=== PATIENT | female | born 1945 | race Caucasian/White ===

== ENCOUNTER 2024-10-20 06:41 | Inpatient (IN) | payer MEDICARE ==
[2024-10-16 14:53] LABS: BILIRUBIN,URINE NEGATIVE (Neg); CLARITY,URINE CLEAR (Clear); COLOR,URINE STRAW (Yellow); GLUCOSE, URINE NEGATIVE (Neg); KETONES,URINE NEGATIVE (Neg); LEUKOCYTE ESTERASE ,URINE TRACE (Neg); NITRITES, URINE NEGATIVE (Neg); OCCULT BLOOD,URINE TRACE-INTACT (Neg); PROTEIN,URINE NEGATIVE (Neg); UROBILINOGEN,URINE 0.2 E.U/dL (0.2-1.0)
[2024-10-16 14:59] LABS: BASOPHILS % (AUTO) 0.6 % (0-1); EOSINOPHILS # (AUTO) 0.2 X10'3 (0-0.9); EOSINOPHILS % (AUTO) 2.3 % (0-6); LYMPHOCYTES # (AUTO) 1.4 X10'3 (1.1-4.8); LYMPHOCYTES % (AUTO) 19.8 % (21-51); MEAN CORPUSCULAR HEMOGLOBIN 28.7 PG (27.0-31.0); MEAN CORPUSCULAR HGB CONC 32.8 g/dL (33.0-36.5); MEAN CORPUSCULAR VOLUME 87.3 FL (78-98); MEAN PLATELET VOLUME 8.4 FL (7.4-10.4); MONOCYTES # (AUTO) 0.5 X10'3 (0-0.9); MONOCYTES % (AUTO) 6.4 % (2-12); NEUTROPHILS # (AUTO) 5.1 X10'3 (1.8-7.7); NEUTROPHILS % (AUTO) 70.9 % (42-75); PRE OP HEMATOCRIT 41.8 % (35.0-45.0); PRE OP HEMOGLOBIN 13.7 g/dL (12.0-16.0); PRE OP PLATELET COUNT 240 X10'3 (140-440); PRE OP WHITE BLOOD COUNT 7.1 10'3 (4.8-10.8); RED BLOOD COUNT 4.79 X10'6 (4.20-5.60); RED CELL DISTRIBUTION WIDTH 14.7 % (11.5-14.5)
[2024-10-16 14:59] LABS: UA COLLECTION TYPE NON-SPECIFIED
[2024-10-16 15:00] LABS: RBC,URINE 0-2 /HPF (0-2)
[2024-10-16 15:01] LABS: BACTERIA,URINE NONE SEEN /HPF (Neg); MUCUS STRANDS NONE SEEN /LPF (Neg); SQUAMOUS EPITHELIAL CELL,UR FEW /LPF (FEW); TRANSITIONAL EPI CELLS,URINE FEW /HPF
[2024-10-16 15:18] LABS: PRE OP PROTIME 10.4 SECONDS (9.0-12.0)
[2024-10-16 16:08] LABS: ALBUMIN 3.8 G/DL (3.4-5.0); ALBUMIN/GLOBULIN RATIO 1.1 (1.1-1.5); ALKALINE PHOSPHATASE 89 IU/L (46-116); BLOOD UREA NITROGEN 22 MG/DL (7-18); BUN/CREATININE RATIO 18.5 (10.0-20.0); CALCIUM 9.3 MG/DL (8.5-10.1); CHLORIDE 102 MMOL/L (99-107); CREATININE 1.19 MG/DL (0.40-0.90); PRE OP ALT 23 U/L (30-65); PRE OP ANION GAP 9 (8-16); PRE OP AST 18 U/L (10-37); PRE OP BILIRUB, TOTAL 0.9 MG/DL (0.0-1.0); PRE OP GLUCOSE 84 MG/DL (70-104); PRE OP POTASSIUM 3.8 MMOL/L (3.4-5.1); PRE OP SODIUM 141 MMOL/L (135-145); THYROID STIMULATING HORMONE 2.46 ulU/ml (0.34-4.50); TOTAL CARBON DIOXIDE 30.3 MMOL/L (24-32); TOTAL PROTEIN 7.2 G/DL (6.4-8.2); eGFR 44 ML/MIN
[~2024-10-20] VITALS: Ht 163.8 cm; Wt 90.1 kg
[2024-10-20] VITALS (26 sets, daily range): BP systolic 98–156; BP diastolic 53–77; PULSE 50–84; RESP 12–49; TEMP 97.4–98.1; O2SAT 92–99
[~2024-10-20 06:41] MED LIST: APIX5TAB3 PO; LEVO100T PO; LOSA1TAB41 PO; PRAV80TA3 PO; ondansetron/PF 4mg/2ml inj IV PRN; protamine sulfate 10mg/ml inj. ONE
[2024-10-20] MEDS: VANCOMYCIN/H2O 1.5g/300mL PB 300 ML IV ONE (07:31)
[2024-10-20] MEDS: ringers solution, lacted 1,000 ML IV SCH (07:31)
[2024-10-20] MEDS: ceFAZolin 2gm in dextrose, iso 50 ML IV ONE (07:32)
[2024-10-20] MEDS: famotidine 20mg tablet PO ONE (07:32)
[2024-10-20] MEDS ORDERED: fentaNYL/PF 50MCG/1 ML 2ML syringe ONE (08:03)
[2024-10-20] MEDS ORDERED: midazolam 1 mg/ML 2ml injection ONE (08:03)
[2024-10-20] MEDS ORDERED: iohexol 350MG/ML 100ml bottle IV ONE (08:10)
[2024-10-20] MEDS ORDERED: desflurane 240ml liquid inh. IH ONE (08:21)
[2024-10-20] MEDS ORDERED: rocuronium 10mg/ml inj IV ONE (08:38)
[2024-10-20] MEDS ORDERED: propofol inj 20 ML IV ONE (08:39)
[2024-10-20] MEDS ORDERED: ondansetron/PF 4mg/2ml inj ONE (08:41)
[2024-10-20] MEDS ORDERED: heparin 1,000unit/ml 10ml vial 10 ML ONE (08:41)
[2024-10-20] MEDS ORDERED: potassium Cl 20 mEq SR tablet PO PRN (09:05)
[2024-10-20] MEDS ORDERED: hydrALAZINE 20mg/ml inj. IV PRN (09:05)
[2024-10-20] MEDS ORDERED: potassium Cl 20mEq/100mL bag 100 ML IV PRN (09:05)
[2024-10-20] MEDS ORDERED: potassium CL 10mEq/100ml bag 100 ML IV PRN (09:05)
[2024-10-20] MEDS ORDERED: acetaminophen 325mg tablet PO PRN (09:05)
[2024-10-20] MEDS ORDERED: diphenhydrAMINE 25mg capsule PO PRN (09:05)
[2024-10-20] MEDS ORDERED: labetalol 20mg/4ml (5mg/ml) syringe IV PRN (09:05)
[2024-10-20] MEDS ORDERED: ondansetron/PF 4mg/2ml inj IV PRN (09:05)
[2024-10-20] MEDS ORDERED: magnesium sulf-water 4G/100mL 100 ML IV PRN (09:05)
[2024-10-20] MEDS ORDERED: proCHLORperazine 10 MG/2 ml inj IV PRN (09:05)
[2024-10-20] MEDS ORDERED: pantoprazole 40mg Tablet.DR PO PRN (09:05)
[2024-10-20] MEDS ORDERED: potassium Cl 40MEQ/270ML bag 250 ML IV PRN (09:05)
[2024-10-20] MEDS ORDERED: ALPRAZolam 0.25mg tablet PO PRN (09:05)
[2024-10-20] MEDS ORDERED: potassium Cl 40MEQ/1/2NS 520ml 520 ML IV PRN (09:05)
[2024-10-20] MEDS ORDERED: magnesium sulf-water 2g/50mL 50 ML IV PRN (09:05)
[2024-10-20] MEDS ORDERED: HYDROcodone/acetaminophen 5mg/325mg tablet PO PRN (09:05)
[2024-10-20] MEDS ORDERED: docusate sod 100mg capsule PO PRN (09:05)
[2024-10-20] MEDS: normal saline 1000ml 1,000 ML IV SCH (15:54)
[2024-10-20] MEDS: sod chloride 0.9% 10ml flush syringe IV SCH (15:54)
[2024-10-20] MEDS: ceFAZolin 1GM/D5W- ADD-VANTAGE 50 ML IV SCH (15:54)
[2024-10-20] MEDS: vancomycin inj 1,000 MG in normal saline 250ml IV soln 250 ML IV SCH (19:50)
[2024-10-20] MEDS: atorvastatin 20mg tablet PO SCH (21:13)
[2024-10-21 02:00] VITALS: BP 100/46; PULSE 50; RESP 18; TEMP 98; O2SAT 95
[2024-10-21 06:44] LABS: BASOPHILS % (AUTO) 0.5 % (0-1); EOSINOPHILS % (AUTO) 0.3 % (0-6); HEMATOCRIT 35.8 % (35.0-45.0); HEMOGLOBIN 12.2 g/dl (12.0-16.0); LYMPHOCYTES # (AUTO) 1.5 X10'3 (1.1-4.8); LYMPHOCYTES % (AUTO) 15.5 % (21-51); MEAN CORPUSCULAR HEMOGLOBIN 29.4 PG (27.0-31.0); MEAN CORPUSCULAR HGB CONC 33.9 g/dL (33.0-36.5); MEAN CORPUSCULAR VOLUME 86.8 FL (78-98); MEAN PLATELET VOLUME 8.8 FL (7.4-10.4); MONOCYTES # (AUTO) 0.7 X10'3 (0-0.9); MONOCYTES % (AUTO) 7.4 % (2-12); NEUTROPHILS # (AUTO) 7.6 X10'3 (1.8-7.7); NEUTROPHILS % (AUTO) 76.3 % (42-75); PLATELET COUNT 200 X10'3 (140-440); RED BLOOD COUNT 4.13 X10'6 (4.20-5.60); RED CELL DISTRIBUTION WIDTH 14.6 % (11.5-14.5)
[2024-10-21 06:59] LABS: INR 1.1 INR; PROTHROMBIN TIME 10.9 SECONDS (9.0-12.0)
[2024-10-21] MEDS: levoTHYROXINE 100mcg tablet PO SCH (07:13)
[2024-10-21 07:29] LABS: ALANINE AMINOTRANSFERASE 17 U/L (12-78); ALKALINE PHOSPHATASE 71 IU/L (46-116); ANION GAP 9 (8-16); ASPARTATE AMINO TRANSFERASE 18 U/L (10-37); BILIRUBIN,TOTAL 0.5 MG/DL (0.1-1.0); BLOOD UREA NITROGEN 25 MG/DL (7-18); BUN/CREATININE RATIO 18.7 (10.0-20.0); CALCIUM 8.8 MG/DL (8.5-10.1); CHLORIDE 107 MMOL/L (99-107); CREATININE 1.34 MG/DL (0.40-0.90); GLUCOSE 103 MG/DL (70-104); MAGNESIUM 1.9 MG/DL (1.5-2.4); PRO BRAIN NATRIURETIC PEPTIDE 379 PG/ML (0-450); SODIUM 141 MMOL/L (135-145); TOTAL CARBON DIOXIDE 25.2 MMOL/L (24-32); TOTAL PROTEIN 6.1 G/DL (6.4-8.2); eCRCL 31 ML/MIN; eGFR 38 ML/MIN
[2024-10-21 07:41] VITALS: BP 101/56; PULSE 77; RESP 18; TEMP 97.6; O2SAT 95
[2024-10-21 08:40] VITALS: BP_SYST 101; PULSE 77
[2024-10-21] MEDS: HYDROchlorothiazide 12.5mg capsule PO SCH (08:40)
[2024-10-21] MEDS: losartan 50mg tablet PO SCH (08:40)
[2024-10-21] MEDS: apixaban 5mg tablet PO SCH (08:40)
[2024-10-21 09:44] VITALS: RESP 20; O2SAT 98
== END 2024-10-21 10:18 | disposition home or self-care (01) | DRG 274 ==
LOC: PAS IN 06:41 → PCU 3S 16:39
PROVIDERS: ADMIT Student in an Organized Health Care Education/Training Program; ATTEND Student in an Organized Health Care Education/Training Program
PROC: B24BZZ4 Ultrasonography of Heart with Aorta, Transesophageal (ICD-10-PCS; 2024-10-20)
PROC: 02L73DK Occlusion of Left Atrial Appendage with Intraluminal Device, Percutaneous Approach (ICD-10-PCS; principal; 2024-10-20 08:21)
DX: I48.91 Unspecified atrial fibrillation (principal); Z00.6 Encounter for examination for normal comparison and control in clinical research program; Z79.01 Long term (current) use of anticoagulants
CPT/HCPCS: 33340; 36415; 71045; 71046; 76937; 80053; 81001; 82948; 83735; 83880; 84443; 85025; 85347; 85610; 85730; 86885; 86900; 86901; 86920; 87081; 87088; 93005; 93308; 93312; 93325; A4618; A4620; A6258; A6449; C1760; C1889; C1893; C1894; G0378; J0690; J1100; J1644; J2003; J2250; J2371; J2405; J2704; J2710; J2720; J3010; J3370; J3372; J3490; J7030; J7050; J7120; Q9967

== ENCOUNTER 2024-12-12 10:47 | Day surgery (SDC) | payer MEDICARE ==
[2024-12-12] VITALS (9 sets, daily range): BP systolic 125–183; BP diastolic 76–97; PULSE 77–102; RESP 12–16; TEMP 98.1; O2SAT 94–100
[~2024-12-12] VITALS: Ht 162.6 cm; Wt 90.4 kg
[~2024-12-12 10:47] MED LIST changes: -ondansetron/PF 4mg/2ml inj IV PRN; -protamine sulfate 10mg/ml inj. ONE
[2024-12-12 11:41] LABS: BASOPHILS % (AUTO) 0.6 % (0-1); EOSINOPHILS # (AUTO) 0.1 X10'3 (0-0.9); HEMATOCRIT 45.1 % (35.0-45.0); HEMOGLOBIN 14.7 g/dl (12.0-16.0); LYMPHOCYTES # (AUTO) 1.7 X10'3 (1.1-4.8); MEAN CORPUSCULAR HEMOGLOBIN 28.1 PG (27.0-31.0); MEAN CORPUSCULAR HGB CONC 32.7 g/dL (33.0-36.5); MEAN CORPUSCULAR VOLUME 85.7 FL (78-98); MEAN PLATELET VOLUME 8.4 FL (7.4-10.4); MONOCYTES # (AUTO) 0.4 X10'3 (0-0.9); MONOCYTES % (AUTO) 7.2 % (2-12); NEUTROPHILS # (AUTO) 3.7 X10'3 (1.8-7.7); NEUTROPHILS % (AUTO) 62.2 % (42-75); PLATELET COUNT 227 X10'3 (140-440); RED BLOOD COUNT 5.26 X10'6 (4.20-5.60); RED CELL DISTRIBUTION WIDTH 14.8 % (11.5-14.5); WHITE BLOOD COUNT 5.9 X10'3 (4.5-11.0)
[2024-12-12 11:53] LABS: APTT 25 SECONDS (22-32); PROTHROMBIN TIME 10.3 SECONDS (9.0-12.0)
[2024-12-12 11:59] LABS: BLOOD UREA NITROGEN 25 MG/DL (7-18); BUN/CREATININE RATIO 18.7 (10.0-20.0); CHLORIDE 103 MMOL/L (99-107); CREATININE 1.34 MG/DL (0.40-0.90); GLUCOSE 92 MG/DL (70-104); POTASSIUM 4.1 MMOL/L (3.5-5.1); SODIUM 141 MMOL/L (135-145); eCRCL 30 ML/MIN; eGFR 38 ML/MIN
[2024-12-12 12:10] LABS: ANION GAP 8 (8-16); CALCIUM 9.6 MG/DL (8.5-10.1); TOTAL CARBON DIOXIDE 30.1 MMOL/L (24-32)
[2024-12-12] MEDS: MIDAZolam 1mg/ml 10ml vial IV ONE (13:18)
[2024-12-12] MEDS: fentaNYL/PF 50MCG/1 ML 2ML syringe IV ONE (13:18)
[2024-12-12] MEDS ORDERED: CLOP75TA33 PO (13:29)
[2024-12-12] MEDS ORDERED: ASPI-1071 PO (13:29)
--- NOTE | 2024-12-13 17:59 | CARDIOLOGY REPORT ---
APPROVED REPORT EXAM: Focused, limited transesophageal echocardiogram with color flow Doppler. Patient Location: OUT-PATIENT Blood Pressure: 161/89 mmHg Heart Rate: 91 bpm Rhythm: SINUS Indications 45 DAY POST WATCHMAN FLX ADAM CLOSURE DEVICE IMPLANTATION FOLLOW UP EVALUATE DEVICE FOR THROMBUS, POSITION, AND SEAL 24 mm WATCHMAN FLX ADAM CLOSURE DEVICE JOSE LUIS PROBE PASSED BY: Christian Ackerman MD Assistant Surveyor: Tawanda Ackerman MD Previous echo: 10/20/24 [facility] (EF 65%, small LtoR shunt s/p transseptal puncture, no residual flow arou nd device, no pericardial effusion) LEFT VENTRICLE Normal LV size and wall thickness. Overall systolic function is normal. LVEF is 65-70%. RIGHT VENTRICLE RV appears normal size and function. ATRIA LA is moderately dilated. Intact interatrial septum with no L to R shunt detected s/p transseptal pun cture. Left upper pulmonary vein identified. Successfully occluded left atrial appendage with well vi sualized Watchman device well positioned without thrombus. No residual flow detected around device in all views. PERICARDIUM Normal pericardium. No effusion. Prominent anterior epicardial fat pad. CONCLUSION Normal LV size and wall thickness. Overall systolic function is normal. LVEF is 65-70%. RV appears no rmal size and function. LA is moderately dilated. Intact interatrial septum with no L to R shunt dete cted s/p transseptal puncture. Left upper pulmonary vein identified. Successfully occluded left atria l appendage with well visualized Watchman device well positioned without thrombus. No residual flow d etected around device in all views. Normal pericardium. No effusion. Prominent anterior epicardial fa t pad. Conclusion Normal LV size and wall thickness. Overall systolic function is normal. LVEF is 65-70%. RV appears normal size and function. LA is moderately dilated. Intact interatrial septum with no L to R shunt detected s/p transseptal pun cture. Left upper pulmonary vein identified. Successfully occluded left atrial appendage with well visualized Watchman device well positioned without thrombus. No residual flow detected around device in all views. Normal pericardium. No effusion. Prominent anterior epicardial fat pad.
== END 2024-12-12 13:50 | disposition home or self-care (01) ==
LOC: SSTAY O 10:47 → EDSTATUS 13:30 → SSTAY O 13:50
PROVIDERS: ATTEND Student in an Organized Health Care Education/Training Program
DX: I48.91 Unspecified atrial fibrillation (principal); I10 Essential (primary) hypertension; Z90.5 Acquired absence of kidney; Z85.528 Personal history of other malignant neoplasm of kidney
CPT/HCPCS: 36415; 80048; 85025; 85610; 85730; 93312; 93325; 94760; J2250; J3010; J7030